=== PATIENT | male | born 1945 | race Caucasian/White ===

== ENCOUNTER 2016-09-28 23:19 | Emergency (ER) | payer OTHER ==
[~2016-09-28] VITALS: Ht 180.3 cm; Wt 104.3 kg
[~2016-09-28 23:19] MED LIST: ACCUPRIL; ADULT LOW DOSE81 MG PO; ALEVE220 M1 PO; ASPIRIN325 PO; IMDUR 60 MG TAB60 M1 PO; KEFLEX500 MG PO; LIPITOR80 MG PO; LOPID600 MG PO; MULTIVITAMINS PO; NITROQUICK0.4 MG SL; PERCOCET 5-3251 EACH PO; QUINAPRIL 20 MG20 MG PO; TOPROL XL50 MG PO; VALTREX1000 MG PO; ZETIA10 MG PO
[2016-09-28 23:46] LABS: URINE BLOOD 3+ (Negative); URINE GLUCOSE-RANDOM* NEGATIVE (Negative); URINE KETONES NEGATIVE (Negative); URINE LEUKOCYTES-REFLEX 2+ (Negative); URINE PROTEIN (DIPSTICK) 3+ (Negative); URINE SPECIFIC GRAVITY >= 1.030 (1.003-1.035)
[2016-09-28 23:48] LABS: ICTOTEST (BILI CONFIRMATORY) Negative (Negative); URINE BILIRUBIN NEGATIVE (Negative); URINE COLOR BROWN
[2016-09-28 23:49] LABS: HEMATOCRIT 43.7 % (42.0-52.0); HEMOGLOBIN 14.7 gm/dL (14.0-18.0); MCHC 33.6 g/dL (28.0-37.0); MCV 89.3 fL (80.0-100.0); RBC 4.9 mil/uL (4.50-6.00); RDW 14.4 % (10.5-14.5); WBC 14.4 thou/uL (4.0-11.0)
[2016-09-28 23:51] LABS: CASTS None Seen /LPF (None Seen); CRYSTALS None Seen /LPF (None Seen); SQUAMOUS None Seen /LPF (0-3); URINE RBC >20 Many /HPF (0-2); URINE WBC-REFLEX >25 Many /HPF (0-5)
[2016-09-28 23:51] LABS: CREATININE 1.4 mg/dL (0.7-1.3)
[2016-09-29 00:01] LABS: APTT 27.1 Seconds (24.5-32.8); PROTIME 10.6 Seconds (9.3-11.4)
[2016-09-29] MEDS ORDERED: KEFLEX500 MG PO (00:41)
== END 2016-09-29 00:59 | disposition home or self-care (01) ==
LOC: ER 23:19
PROVIDERS: Emergency Medicine
DX: R31.0 Gross hematuria (principal); N39.0 Urinary tract infection, site not specified; I10 Essential (primary) hypertension; E78.00 Pure hypercholesterolemia, unspecified; I25.2 Old myocardial infarction; E11.9 Type 2 diabetes mellitus without complications; Z95.5 Presence of coronary angioplasty implant and graft; Z98.890 Other specified postprocedural states

== ENCOUNTER → 2018-01-15 | Outpatient (CLI) | payer OTHER | LOC: RAD 09:19 | DX: S83.282A Other tear of lateral meniscus, current injury, left knee, initial encounter (principal); M17.12 Unilateral primary osteoarthritis, left knee; X58.XXXA Exposure to other specified factors, initial encounter; Y93.89 Activity, other specified; Y92.89 Other specified places as the place of occurrence of the external cause; Y99.8 Other external cause status ==

== ENCOUNTER → 2018-01-24 | Outpatient (CLI) | payer OTHER | LOC: MRI 09:39 | DX: S83.207A Unspecified tear of unspecified meniscus, current injury, left knee, initial encounter (principal); M17.12 Unilateral primary osteoarthritis, left knee; M25.462 Effusion, left knee; X58.XXXA Exposure to other specified factors, initial encounter; Y93.89 Activity, other specified; Y92.89 Other specified places as the place of occurrence of the external cause; Y99.8 Other external cause status ==

== ENCOUNTER → 2019-04-28 | Outpatient (CLI) | payer OTHER | LOC: SJCVC 11:16 | DX: I21.19 ST elevation (STEMI) myocardial infarction involving other coronary artery of inferior wall (principal); R94.31 Abnormal electrocardiogram [ECG] [EKG]; I25.10 Atherosclerotic heart disease of native coronary artery without angina pectoris; I65.23 Occlusion and stenosis of bilateral carotid arteries; E78.00 Pure hypercholesterolemia, unspecified; I10 Essential (primary) hypertension; M19.90 Unspecified osteoarthritis, unspecified site; E11.9 Type 2 diabetes mellitus without complications; Z87.891 Personal history of nicotine dependence ==

== ENCOUNTER → 2019-12-08 | Outpatient (CLI) | payer OTHER | LOC: SJCVC 13:12 | PROVIDERS: ATTEND Internal Medicine Cardiovascular Disease | DX: I25.10 Atherosclerotic heart disease of native coronary artery without angina pectoris (principal); E78.00 Pure hypercholesterolemia, unspecified; I10 Essential (primary) hypertension; I65.23 Occlusion and stenosis of bilateral carotid arteries; E11.9 Type 2 diabetes mellitus without complications; E78.5 Hyperlipidemia, unspecified; Z87.891 Personal history of nicotine dependence; Z79.82 Long term (current) use of aspirin; Z79.899 Other long term (current) drug therapy; R94.31 Abnormal electrocardiogram [ECG] [EKG] ==

== ENCOUNTER → 2020-08-05 | Outpatient (CLI) | payer OTHER | LOC: SJCVC 11:16 | PROVIDERS: ATTEND Internal Medicine Cardiovascular Disease | DX: R94.31 Abnormal electrocardiogram [ECG] [EKG] (principal); I11.9 Hypertensive heart disease without heart failure; I25.10 Atherosclerotic heart disease of native coronary artery without angina pectoris; I65.23 Occlusion and stenosis of bilateral carotid arteries; E11.9 Type 2 diabetes mellitus without complications; E78.00 Pure hypercholesterolemia, unspecified; E78.2 Mixed hyperlipidemia; Z87.891 Personal history of nicotine dependence; Z79.82 Long term (current) use of aspirin; Z79.899 Other long term (current) drug therapy; Z72.89 Other problems related to lifestyle; I25.2 Old myocardial infarction ==

== ENCOUNTER → 2021-02-13 | Outpatient (CLI) | payer OTHER | LOC: SJCVC 13:39 | PROVIDERS: ATTEND Internal Medicine Cardiovascular Disease | DX: R94.31 Abnormal electrocardiogram [ECG] [EKG] (principal); I49.3 Ventricular premature depolarization; I25.10 Atherosclerotic heart disease of native coronary artery without angina pectoris; I10 Essential (primary) hypertension; I65.23 Occlusion and stenosis of bilateral carotid arteries; E11.9 Type 2 diabetes mellitus without complications; E78.00 Pure hypercholesterolemia, unspecified; E78.5 Hyperlipidemia, unspecified; Z79.82 Long term (current) use of aspirin; Z79.899 Other long term (current) drug therapy; Z87.891 Personal history of nicotine dependence; Z72.89 Other problems related to lifestyle ==

== ENCOUNTER → 2021-04-11 | Outpatient (CLI) | payer OTHER | LOC: SJCVCIMAG 10:23 | PROVIDERS: ATTEND Internal Medicine Cardiovascular Disease | DX: I34.0 Nonrheumatic mitral (valve) insufficiency (principal); B35.1 Tinea unguium; I10 Essential (primary) hypertension; Z68.32 Body mass index [BMI] 32.0-32.9, adult; Z79.82 Long term (current) use of aspirin; Z79.899 Other long term (current) drug therapy; Z72.89 Other problems related to lifestyle; Z87.891 Personal history of nicotine dependence; E78.5 Hyperlipidemia, unspecified; E11.9 Type 2 diabetes mellitus without complications; I25.10 Atherosclerotic heart disease of native coronary artery without angina pectoris ==